=== PATIENT | female | born 1990 | race Caucasian/White ===

== ENCOUNTER 2018-10-19 07:48 | Emergency (ER) | payer OTHER ==
[2018-10-19] MEDS ORDERED: IBUPROFEN 600 MG TAB PO ONE (08:20)
--- NOTE | 2018-10-19 08:22 | EDPHY ---
H & P Smoking Status: Never smoked Time Seen by Provider: 10/19/18 08:19 HPI/ROS: CHIEF COMPLAINT: Finger laceration HISTORY OF PRESENT ILLNESS: Patient is a 28-year-old female who presents emergency department after cutting her right thumb on a dog can lid. Patient removed the lid with an open her. The sharp edge of a can lid cut her thumb. She wrapped her thumb and bleeding was controlled. She has mild discomfort. No other complaints. REVIEW OF SYSTEMS: Negative Past medical history: Noncontributory Social history: Patient does not smoke (Cassandra Bundy S) Physical Exam: General Appearance: Alert and no distress. Head: Pupils equal. Normal. Respiratory: No respiratory distress. Cardiac: regular rate and rhythm. Extremities: Patient has a laceration on her right thumb from the lateral aspect of the the mid nail across the finger pad. The laceration is 2.5 cm in length. No foreign body. Neurovascular intact distally. Nail is intact. Skin: No rashes or lesions. Neuro: Alert. Normal mood and affect. (Cassandra Bundy) Constitutional: Initial Vital Signs Temperature (C) 36.6 C 10/19/18 07:52 Heart Rate 96 10/19/18 07:52 Respiratory Rate 14 10/19/18 07:52 Blood Pressure 126/89 H 10/19/18 07:52 O2 Sat (%) 100 10/19/18 07:52 O2 Delivery Mode Room Air Allergies/Adverse Reactions: No Known Allergies Allergy (Unverified 10/19/18 07:51) Home Medications: Medication Instructions Recorded NK [No Known Home Meds] 10/19/18 Medical Decision Making Procedures: Procedure: Laceration repair. I was requested by Dr. Bundy to perform wound closure I explained the indications, risks and benefits for both laceration repair and anesthetic administration. Verbal consent was obtained from the patient. The laceration on the right thumb was anesthetized using 0.5% bupivicaine without epinephrine digital nerve block. After anesthetic administered the patient was observed for a period of time and had no apparent adverse effects. The wound was cleaned, prepped, draped in normal sterile fashion and explored to its base. No foreign body seen, no foreign bodies palpated. There were no deep structures involved. No tendon injury was identified. The wound was repaired with 6 simple interrupted 5 O Ethilon sutures. The wound repair was simple. The procedure was performed by myself. Patient has been informed that scarring will occur, although efforts have been made to minimize this. (Yoan Brody) ED Course/Re-evaluation: In the emergency department I discussed the plan with the patient. She consented to have her laceration repaired Procedure: Laceration repair. Verbal consent was obtained from the patient. The 2.5 cm laceration on the right thumb was anesthetized in the usual fashion. A digital block was used. The wound was irrigated, draped and explored to its base with a gloved finger. There were no deep structures involved. The wound was repaired with 5 0 nylon. The wound repair was simple. The procedure was performed by myself. Patient was given wound care instructions. She is given warnings prior to leaving. She will return with worsening symptoms. (Cassandra Bundy) Differential Diagnosis: My differential includes but is not limited to laceration, foreign body, ligamentous injury, tendon injury, nail bed injury (Cassandra Bundy) - Data Points Medications Given: Discontinued Medications Ibuprofen (Motrin) 600 mg PO EDNOW ONE Stop: 10/19/18 08:21 Last Admin: 10/19/18 08:22 Dose: 600 mg Departure - Departure Disposition: Home, Routine, Self-Care Clinical Impression: Laceration Finger laceration Qualifiers: Encounter type: initial encounter Finger: thumb Damage to nail status: without damage Foreign body presence: without foreign body Laterality: right Qualified Code(s): S61.011A - Laceration without foreign body of right thumb without damage to nail, initial encounter Condition: Good Instructions: Finger Laceration (ED) Additional Instructions: Keep your wound clean and dry. Have your sutures removed in 9-10 days. Wound Care Follow-Up: Removal of sutures in [ 9-10 ] days. Suture removal is complimentary in uncomplicated cases. Infection or abnormal findings would require reevaluation by the MD. In that case, you may be billed. Referrals: Return, to the ER in 10 days for suture removal [Other] - As per Instructions
[2018-10-19] MEDS ORDERED: TDAP ADULT 0.5 ML INJ (BOOSTRIX) IM ONE (08:38)
[2018-10-19 09:17] VITALS: BP 120/74
== END 2018-10-19 09:20 | disposition home or self-care (01) ==
PROC: 0HQFXZZ Repair Right Hand Skin, External Approach (ICD-10-PCS; principal; 2018-10-19)
DX: S61.011A Laceration without foreign body of right thumb without damage to nail, initial encounter (principal); Z23 Encounter for immunization; W26.8XXA Contact with other sharp object(s), not elsewhere classified, initial encounter; Y93.K9 Activity, other involving animal care; Y99.9 Unspecified external cause status